=== PATIENT | female | born 1960 | race Caucasian/White ===

== ENCOUNTER 2022-03-17 12:22 | Emergency (ER) | payer OTHER ==
[2022-03-17 13:32] LABS: #Basophils 0.1 10x3/uL (0.0-0.2); #Eosinphils 0.2 10x3/uL (0.0-0.5); #Monocytes 0.9 10x3/uL (0.0-1.1); #Neutrophils 11.3 10x3/uL (1.5-8.4); %Basophils 0.7 % (0.0-2.0); %Eosinophils 1.5 % (0.0-6.0); %Lymphocytes 15.3 % (18.0-47.0); %Monocytes 6.1 % (0.0-10.0); Hemoglobin 12.2 g/dL (12.0-15.5); Mean Corpuscular HGB CONC 35.2 g/dL (32.0-36.0); Mean Corpuscular Hemoglobin 34.2 pg (27.0-33.0); Mean Corpuscular Volume 97.2 fl (81.6-98.3); Mean Platelet Volume 9.4 fl (7.4-10.4); Platelet Count 322 10x3/uL (150-450); RBC Distribution Width 12.8 % (11.5-14.5); Red Blood Cell (RBC) Count 3.57 10x6/uL (3.90-5.03); White Blood Cell (WBC) Count 14.9 10x3/uL (3.5-10.5)
[2022-03-17 13:45] LABS: Bilirubin Neg (Negative); Blood, Urine 10 (Negative); Clarity Clear (Clear); Glucose, Urine (Dipstick) Normal (Negative); Ketone, Urine Negative (Negative); Leukocyte 25 (Negative); Nitrite Negative (Negative); Protein, Urine (Dipstick) Negative (Neg-Trace); Urobilinogen Normal mg/dL (Less than 2)
[2022-03-17 13:50] LABS: ALT (SGPT) 30 U/L (8-55); AST (SGOT) 18 U/L (5-34); Albumin 3.9 g/dL (3.4-4.8); Alkaline Phosphatase 63 U/L (40-110); Anion Gap 12 mmol/L (10-20); BUN (Urea Nitrogen) 7 mg/dL (9.8-20.1); Bilirubin, Total 0.3 mg/dL (0.2-1.2); Calc. Creatinine Clearance 0 mL/min (70-130); Calcium 9.5 mg/dL (7.8-10.44); Carbon Dioxide 24 mmol/L (23-31); Chloride 100 mmol/L (98-107); Estimated GFR 97; Globulin 2.7 g/dL (2.4-3.5); Glucose 103 mg/dL (80-115); Lipase 56 U/L (8-78); Potassium 3.5 mmol/L (3.5-5.1); Protein, Total 6.6 g/dL (5.8-8.1); Sodium 132 mmol/L (136-145)
[2022-03-17 14:00] LABS: Bacteria/HPF Rare-Few HPF (None Seen); RBC/HPF 0-3 HPF (0-3); Squamous Epithelial 0-3 HPF (0-3); WBC/HPF 0-3 HPF (0-3)
[2022-03-17] MEDS ORDERED: Iopamidol 300 61% 100 ML VIAL FS ONE (15:42)
== END 2022-03-17 16:15 | disposition home or self-care (01) ==
LOC: CSHERS 12:22
DX: K62.5 Hemorrhage of anus and rectum (principal); K52.9 Noninfective gastroenteritis and colitis, unspecified; F17.200 Nicotine dependence, unspecified, uncomplicated
CPT/HCPCS: 36415; 74177; 80053; 81003; 81015; 82274; 83690; 85025; 86850; 86900; 86901; Q9967

== ENCOUNTER 2022-04-27 13:41 | Inpatient (IN) | payer OTHER ==
[2022-04-27 14:20] LABS: ALT (SGPT) 37 U/L (8-55); AST (SGOT) 20 U/L (5-34); Albumin 3.4 g/dL (3.4-4.8); Alkaline Phosphatase 106 U/L (40-110); Anion Gap 12 mmol/L (10-20); BUN (Urea Nitrogen) 20 mg/dL (9.8-20.1); Bilirubin, Total 0.2 mg/dL (0.2-1.2); Calc. Creatinine Clearance 0 mL/min (70-130); Calcium 8.9 mg/dL (7.8-10.44); Carbon Dioxide 25 mmol/L (23-31); Chloride 98 mmol/L (98-107); Estimated GFR 100; Globulin 2.4 g/dL (2.4-3.5); Glucose 90 mg/dL (80-115); Potassium 3.8 mmol/L (3.5-5.1); Protein, Total 5.8 g/dL (5.8-8.1); Sodium 131 mmol/L (136-145)
[2022-04-27 14:32] LABS: #Basophils 0.1 10x3/uL (0.0-0.2); #Monocytes 0.8 10x3/uL (0.0-1.1); #Neutrophils 12.4 10x3/uL (1.5-8.4); %Basophils 0.6 % (0.0-2.0); %Lymphocytes 10.8 % (18.0-47.0); %Monocytes 5.1 % (0.0-10.0); Hemoglobin 12.4 g/dL (12.0-15.5); Mean Corpuscular HGB CONC 34.9 g/dL (32.0-36.0); Mean Corpuscular Hemoglobin 33.2 pg (27.0-33.0); Mean Corpuscular Volume 95.2 fl (81.6-98.3); Mean Platelet Volume 9.1 fl (7.4-10.4); Platelet Count 296 10x3/uL (150-450); RBC Distribution Width 12.7 % (11.5-14.5); Red Blood Cell (RBC) Count 3.73 10x6/uL (3.90-5.03); White Blood Cell (WBC) Count 16.2 10x3/uL (3.5-10.5)
[2022-04-27 16:05] LABS: Bilirubin Neg (Negative); Blood, Urine Negative (Negative); Clarity Clear (Clear); Glucose, Urine (Dipstick) Normal (Negative); Ketone, Urine Negative (Negative); Leukocyte 100 (Negative); Nitrite Negative (Negative); Protein, Urine (Dipstick) Negative (Neg-Trace); Urobilinogen Normal mg/dL (Less than 2)
[2022-04-27 16:19] LABS: Bacteria/HPF Rare-Few HPF (None Seen); RBC/HPF 0-3 HPF (0-3); Squamous Epithelial 0-3 HPF (0-3)
[2022-04-27] MEDS ORDERED: Cyclobenzaprine 10 MG TAB ONE (17:25)
[2022-04-27 17:50] LABS: Troponin I Less than 0.010 ng/mL (< 0.028)
[2022-04-27] MEDS ORDERED: Ondansetron PF 4 MG/2 ML Vial IVP PRN (18:45)
[2022-04-27] MEDS ORDERED: Acetaminophen 325 MG TAB PO PRN (18:45)
[2022-04-27] MEDS ORDERED: Guaifenesin DM 100-10/5 ML UDCUP PO PRN (18:45)
[2022-04-27] MEDS ORDERED: Sodium Chloride 0.9% 1,000 ML IV SCH (19:00)
[2022-04-27 19:55] VITALS: BMI 20.2
[2022-04-27 20:12] LABS: Troponin I Less than 0.010 ng/mL (< 0.028)
[2022-04-27] MEDS: Nystatin 500,000 UNITS/5 ML UDCUP SSW SCH (20:27)
[2022-04-27 22:34] LABS: SARS-CoV-2 NAA Rapid Test Not Detected (NotDetected)
[2022-04-28] MEDS: Cyclobenzaprine 10 MG TAB PO PRN ×2 (02:45→10:07)
[2022-04-28 05:10] LABS: #Basophils 0.1 10x3/uL (0.0-0.2); #Eosinphils 1.2 10x3/uL (0.0-0.5); #Monocytes 0.9 10x3/uL (0.0-1.1); #Neutrophils 9.1 10x3/uL (1.5-8.4); %Basophils 0.9 % (0.0-2.0); %Eosinophils 8.8 % (0.0-6.0); %Monocytes 7.2 % (0.0-10.0); %Neutrophils 69.3 % (40.0-75.0); Hemoglobin 12.4 g/dL (12.0-15.5); Mean Corpuscular HGB CONC 35.1 g/dL (32.0-36.0); Mean Corpuscular Hemoglobin 32.9 pg (27.0-33.0); Mean Corpuscular Volume 93.6 fl (81.6-98.3); Mean Platelet Volume 9.2 fl (7.4-10.4); Platelet Count 319 10x3/uL (150-450); RBC Distribution Width 12.9 % (11.5-14.5); Red Blood Cell (RBC) Count 3.77 10x6/uL (3.90-5.03); White Blood Cell (WBC) Count 13.1 10x3/uL (3.5-10.5)
[2022-04-28 05:32] LABS: Anion Gap 11 mmol/L (10-20); BUN (Urea Nitrogen) 12 mg/dL (9.8-20.1); Calc. Creatinine Clearance 74 mL/min (70-130); Calcium 9.1 mg/dL (7.8-10.44); Carbon Dioxide 24 mmol/L (23-31); Chloride 104 mmol/L (98-107); Estimated GFR 101; Glucose 82 mg/dL (80-115); Potassium 4.4 mmol/L (3.5-5.1); Sodium 135 mmol/L (136-145)
[2022-04-28] MEDS ORDERED: traZODone HCl 50 MG TAB PO PRN (08:08)
[2022-04-28] MEDS: Nystatin 500,000 UNITS/5 ML UDCUP SSW SCH ×4 (08:44→21:37)
[2022-04-28] MEDS: Multivitamin W/ Minerals 1 TAB PO SCH (08:45)
[2022-04-28] MEDS: Thiamine 100 MG TAB PO SCH (08:45)
[2022-04-28] MEDS: Folic Acid 1 MG TAB PO SCH (08:45)
[2022-04-28] MEDS: Enoxaparin Sodium 40 MG/0.4 ML SYRINGE SC SCH (08:46)
[2022-04-28] MEDS ORDERED: Magnevist 469MG/ML 20 ML VIAL ONE (14:49)
[2022-04-28] MEDS: Ibuprofen 400 MG TAB PO PRN (18:03)
[2022-04-28] MEDS: Budesonide 0.5 MG/2 ML NEB NEB SCH (19:45)
[2022-04-29 05:33] LABS: HIV (1/2) Antibody/Antigen Non-Reactive (NonReactive); HIV 1/2 INDEX 0.06 S/CO (<1.00)
[2022-04-29] MEDS: Budesonide 0.5 MG/2 ML NEB NEB SCH (07:12)
[2022-04-29] MEDS: Multivitamin W/ Minerals 1 TAB PO SCH (08:25)
[2022-04-29] MEDS: Folic Acid 1 MG TAB PO SCH (08:25)
[2022-04-29] MEDS: Ibuprofen 400 MG TAB PO PRN (08:26)
[2022-04-29] MEDS: Thiamine 100 MG TAB PO SCH (08:26)
[2022-04-29] MEDS: Nystatin 500,000 UNITS/5 ML UDCUP SSW SCH (08:27)
[2022-04-29] MEDS: Enoxaparin Sodium 40 MG/0.4 ML SYRINGE SC SCH (08:27)
[2022-04-29 09:46] VITALS: TEMP 96.7
[2022-04-29 10:47] VITALS: BP 117/49
== END 2022-04-29 11:31 | disposition home or self-care (01) | DRG 312 ==
LOC: CSHERS 13:41 → SUATTDRO 13:41 → CSHTELE 19:04 → INTOOBSV 19:04 → OBSVTOIN 04-28 08:06
PROVIDERS: ADMIT Student in an Organized Health Care Education/Training Program; ATTEND Student in an Organized Health Care Education/Training Program
DX: R55 Syncope and collapse (principal); B37.0 Candidal stomatitis; E87.1 Hypo-osmolality and hyponatremia; M51.36 Other intervertebral disc degeneration, lumbar region; F41.9 Anxiety disorder, unspecified; F17.210 Nicotine dependence, cigarettes, uncomplicated; Z20.822 Contact with and (suspected) exposure to COVID-19; G89.29 Other chronic pain; F10.20 Alcohol dependence, uncomplicated; J44.9 Chronic obstructive pulmonary disease, unspecified; J98.4 Other disorders of lung; Z79.899 Other long term (current) drug therapy; Z79.51 Long term (current) use of inhaled steroids
CPT/HCPCS: 36415; 71045; 71275; 72158; 80048; 80053; 81003; 81015; 82533; 82550; 83605; 84484; 85025; 85379; 85652; 86140; 87389; 93005; 93306; 94640; A9579; G0378; J1650; J7050; J7626; U0002

== ENCOUNTER 2025-05-01 07:43 | Outpatient (CLI) | payer MEDICARE, OTHER ==
[2025-05-01 09:28] LABS: Actual Bicarbonate (HCO3a) 21.3 mEq/L (22-28); Analyzer IN Cardio CS ER; Base Excess (BEa) -3.5 mEq/L (-2.0 to +3.0); CO2 Tension 37.8 mmHg (35.0-45.0); Calcium, Ionized (arterial) 1.18 mmol/L (1.12-1.30); Hematocrit-ABG 38 % (36.0-47.0); Hemoglobin (Hb) 12.9 g/dL (12.0-16.0); O2 Tension (PaO2), arterial 58.1 mmHg (> 80.0); Potassium - ABG Lab 3.84 mmol/L (3.70-5.30); Puncture Site Right Brachial art; pH, Arterial 7.369 (7.35-7.45)
[2025-05-01 09:51] LABS: ALV-art Gradient 44.380 mmHg (0-20)
== END 2025-05-01 07:44 | disposition home or self-care (01) ==
LOC: CSHCP 07:43
PROVIDERS: ATTEND Internal Medicine
DX: J44.9 Chronic obstructive pulmonary disease, unspecified (principal); R91.1 Solitary pulmonary nodule
CPT/HCPCS: 36600; 82805; 94060; 94618; 94664; 94726; 94729